=== PATIENT | female | born 1955 | race Hispanic/Latino ===

== ENCOUNTER 2024-09-27 14:19 | Emergency (ER) | payer OTHER ==
[2024-09-27 15:02] LABS: Absolute Eosinophils 0.1 K/uL (0-0.5); Absolute Lymphocytes (CBC) 0.5 K/uL (0.7-4.9); Absolute Monocytes 0.5 K/uL (0.1-1.3); Absolute Neutrophil 11.9 K/uL (1.8-8.0); Basophils % 0.3 % (0-1.3); Eosinophils % 0.8 % (0-4.4); Hematocrit 36.7 % (36.0-45.0); Lymphocytes % 3.7 % (15.3-44.8); MCH 26.4 pg (27.0-35.0); MCHC 32.7 g/dL (32.0-36.0); MPV 9.1 fL (7.6-11.3); Monocytes % 3.7 % (3.3-12.3); Neutrophils % 91.5 % (41.7-73.7); Platelets 236 thou/uL (152-406); RBC Red Blood Cell Count 4.53 M/uL (3.86-4.86); Red Cell Distribution Width 15.6 % (12.1-15.2)
[2024-09-27] MEDS ORDERED: METOCLOPRAMIDE 10 MG/2mL INJ ONE (15:12)
[2024-09-27] MEDS ORDERED: NA CHLORIDE 0.9% 500 ML ONE (15:12)
[2024-09-27] MEDS ORDERED: DIPHENHYDRAMINE 50 MG/ML VIAL ONE (15:12)
--- NOTE | 2024-09-27 15:20 | RAD REPORT ---
EXAMINATION: ONE VIEW CHEST XR CLINICAL INDICATION: Female, 68 years old.,CHEST PAIN TECHNIQUE: Frontal chest projection is submitted. Examination is limited by patient positioning and t echnique. COMPARISON: No prior exam. FINDINGS: The lungs are well inflated and clear. No pneumothorax or sizable effusion. The heart is normal in s ize. Mediastinal contours are unremarkable. IMPRESSION: No acute intrathoracic abnormalities.
[2024-09-27 15:28] LABS: ALT/SGPT 19 U/L (13-56); AST/SGOT 13 U/L (15-37); Albumin 3.6 g/dL (3.4-5.0); Albumin/Globulin Ratio 1.1 (1.1-1.8); Alkaline Phosphatase 83 U/L (45-117); Anion Gap 6.7 mEq/L (5.0-15.0); BUN Blood Urea Nitrogen 19 mg/dL (7-18); Bicarbonate 31 mEq/L (21-32); Bilirubin Direct < 0.2 mg/dL (0-0.2); Bilirubin Indirect, Calculated 0.1 mg/dL (0.2-0.8); Bilirubin Total 0.3 mg/dL (0.2-1.0); Globulin 3.3 g/dL (2.3-3.5); Glomerular Filtration Rate 68 ml/min (=/>90); Glucose Level 164 mg/dL (74-106); Lipase 133 U/L (13-75); Magnesium 1.3 mg/dL (1.6-2.4); Potassium 3.7 mEq/L (3.5-5.1); Protein, Total 6.9 g/dL (6.4-8.2); Sodium Level 138 mEq/L (136-145); Troponin High Sensitivity 5.3 pg/mL (<58.9)
[2024-09-27 16:18] LABS: Band Neutrophils 5 % (0-1); Blood Morphology Comment NOT SEEN (NOT SEEN); Differential Total Cells Count 100; Eosinophils 2 % (0-3); Lymphocytes 6 % (15-42); Monocytes 1 % (0-10); Platelet Estimate ADEQ; Segmented Neutrophils 86 % (40-80)
[2024-09-27] MEDS ORDERED: MAGNESIUM SULFATE 1 gm IVPB 1 GM/100 ML BAG IV ONE (16:32)
--- NOTE | 2024-09-27 16:41 | RAD REPORT ---
EXAMINATION: CT Abdomen Pelvis W Contrast CLINICAL INDICATION: Female, 68 years old. vomiting TECHNIQUE: CT abdomen and pelvis was performed, after the administration of IV contrast, as per [facility] protocol. Axial, sagittal and coronal reconstructions were obtained. One or more of the following dose reduction techniques were used: Automated exposure control, adjustment of the mA and k V according to patient size, and iterative reconstruction. Unless otherwise specified, incidental findings do not require dedicated imaging follow-up. COMPARISON: Benign-appearing central hepatic hypodensities, suggesting small cysts, largest measuring 1 cm FINDINGS: LOWER CHEST: The visualized lung bases are clear. LIVER: Normal in size and contour. No focal lesion. BILIARY SYSTEM: No suspicious abnormalities. SPLEEN: Normal size. No focal lesion. PANCREAS: No mass, ductal dilation, or william-pancreatic fluid. ADRENALS: Normal; no mass. KIDNEYS: Normal size and contour. No hydronephrosis. URINARY BLADDER: Unremarkable. GASTROINTESTINAL TRACT: No evidence of free air, significant intra-abdominal free fluid, bowel obstru ction or abscess. Distal colonic diverticulosis without evidence of acute diverticulitis. APPENDIX: Normal appendix. LYMPH NODES: No lymphadenopathy. MUSCULOSKELETAL: No acute or suspicious osseous abnormality. ADDITIONAL FINDINGS: None. IMPRESSION: No acute or concerning abnormalities seen in the abdomen or pelvis. Incidental findings as above.
--- NOTE | 2024-09-27 17:35 | EDPHYS ---
Physician Documentation [facility] Name: Suzanne Najera Age: 68 yrs Sex: Female : 1955 Arrival Date: 09/27/2024 Time: 14:19 Bed 7 Private MD: ED Physician Elver Dougherty HPI: 09/27 14:55 This 68 yrs old Female presents to ER via Ambulatory with complaints of cp Vomiting. 14:55 The patient presents to the emergency department with nausea, that is moderate, cp vomiting, that is intermittent, described as bilious. Onset: The symptoms/episode began/occurred yesterday. Possible causes: bad food exposure, beef and goat. Associated signs and symptoms: Pertinent negatives: constipation, diarrhea, fever, GI bleeding. Historical: - Allergies: 14:44 Tetanus Vaccines \T\ Toxoid; jl7 - PMHx: 14:44 Hypertensive disorder; Diabetes mellitus; Hypercholesterolemia; jl7 - Immunization history:: Adult Immunizations up to date. - Infectious Disease History:: Denies. - Social history:: Smoking status: Patient denies any tobacco usage or history of. ROS: 15:00 Constitutional: Negative for body aches, chills, fever, poor PO intake, cp 15:00 Eyes: Negative for injury, pain, redness, and discharge, cp 15:00 ENT: Negative for drainage from ear(s), ear pain, sore throat, difficulty swallowing, difficulty handling secretions, 15:00 Cardiovascular: Negative for chest pain, edema, palpitations, 15:00 Respiratory: Negative for cough, shortness of breath, wheezing, 15:00 Abdomen/GI: Positive for abdominal pain, nausea, vomiting, Negative for diarrhea, constipation, hematemesis, 15:00 Back: Negative for pain at rest, pain with movement, 15:00 Neuro: Negative for altered mental status, dizziness, headache, syncope, weakness, 15:00 All other systems are negative, Exam: 15:05 Constitutional: The patient appears in no acute distress, alert, awake, cp non-diaphoretic, non-toxic, well developed, well nourished, uncomfortable, 15:05 Head/Face: Normocephalic, atraumatic. cp 15:05 Eyes: Periorbital structures: appear normal, Conjunctiva: normal, no exudate, no injection, Sclera: no appreciated abnormality, Lids and lashes: appear normal, bilaterally, 15:05 ENT: External ear(s): are unremarkable, Nose: is normal, Mouth: Lips: moist, Oral mucosa: moist, Posterior pharynx: Airway: no evidence of obstruction, patent, erythema, is not appreciated, exudate, is not appreciated, 15:05 Neck: ROM/movement: is normal, is supple, without pain, no range of motions limitations, 15:05 Chest/axilla: Inspection: normal, 15:05 Cardiovascular: Rate: normal, Rhythm: regular, Edema: is not appreciated, JVD: is not appreciated, 15:05 Respiratory: the patient does not display signs of respiratory distress, Respirations: normal, no use of accessory muscles, no retractions, labored breathing, is not present, Breath sounds: are clear throughout, no decreased breath sounds, no stridor, no wheezing, 15:05 Abdomen/GI: Inspection: abdomen appears normal, Bowel sounds: active, all quadrants, Palpation: soft, in all quadrants, moderate abdominal tenderness, in the epigastric area, right upper quadrant and left upper quadrant, rebound tenderness, is not appreciated, involuntary guarding, is not appreciated, 15:05 Back: CVA tenderness, is absent, 15:05 Neuro: Orientation: to person, place \T\ time. Mentation: is normal, Motor: moves all fours, strength is normal, 15:12 ECG was reviewed by the Attending Physician. Vital Signs: 14:42 BP 125 / 93; Pulse 85; Resp 17; Pulse Ox 100% ; Weight 63.96 kg; Height 5 ft. 3 in. ; jl7 Pain 9/10; 15:22 BP 111 / 65; Pulse 83; Resp 16 S; Pulse Ox 98% on R/A; kc6 16:30 BP 154 / 62; Pulse 83; Resp 18 S; Pulse Ox 96% on R/A; kc6 17:17 BP 145 / 64; Pulse 77; Resp 17 S; Pulse Ox 99% on R/A; kc6 14:42 Body Mass Index 24.98 (63.96 kg, 160.02 cm) [facility] 14:42 Pain Scale: Adult [facility] MDM: 14:38 Medical Screening Exam initiated 17:33 Data reviewed: vital signs, nurses notes, EKG, radiologic studies, CT scan, plain cp films, and as a result, I will discharge patient. 17:33 I considered the following discharge prescriptions or medication management in the emergency department Medications were administered in the Emergency Department. See MAR. Independent interpretation of the following test(s) in the Emergency Department EKG: See my EKG interpretation above. Care significantly affected by the following chronic conditions: Diabetes, Hypertension. Counseling: I had a detailed discussion with the patient and/or guardian regarding the historical points, exam findings, and any diagnostic results supporting the discharge/admit diagnosis, lab results, radiology results, to return to the emergency department if symptoms worsen or persist or if there are any questions or concerns that arise at home. Response to treatment: the patient's symptoms have markedly improved after treatment, VSS. Pain and nausea improved, vomiting resolved. Lipase slightly elevated with normal CT abdomen. Will discharge to home for continued monitoring. 09/27 14:51 Order name: Basic Metabolic Panel; Complete Time: 16:11 cp 09/27 16:11 Interpretation: Normal except: GLUC 164; BUN 19; GFR 68. cp 09/27 14:51 Order name: CBC with Diff; Complete Time: 16:44 cp 09/27 16:11 Interpretation: Normal except: WBC 13.00; MCH 26.4; RDW 15.6; POPPY% 91.5; LYM% 3.7; NEUT cp A 11.9; LYMA 0.5. 09/27 14:51 Order name: LFT's; Complete Time: 16:11 cp 09/27 16:46 Interpretation: Normal except: AST 13; IBILI, CALC 0.1. cp 09/27 14:51 Order name: Magnesium; Complete Time: 16:11 cp 09/27 16:46 Interpretation: Abnormal: MG 1.3. cp 09/27 14:51 Order name: Troponin HS; Complete Time: 16:11 cp 09/27 14:51 Order name: Lipase; Complete Time: 16:11 cp 09/27 16:18 Order name: Manual Differential; Complete Time: 16:44 EDMS 09/27 16:45 Interpretation: Normal except: SEGS 86; BANDS [F] 5; LYM 6. cp 09/27 14:51 Order name: XRAY Chest (1 view); Complete Time: 16:11 cp 09/27 15:20 Order name: CT Abd/Pelvis - IV Contrast Only; Complete Time: 16:44 cp 09/27 16:45 Interpretation: Report reviewed. 09/27 14:51 Order name: Cardiac monitoring; Complete Time: 15:10 cp 09/27 14:51 Order name: EKG - Nurse/Tech; Complete Time: 15:10 cp 09/27 14:51 Order name: IV Saline Lock; Complete Time: 14:52 09/27 14:51 Order name: Labs collected and sent; Complete Time: 14:52 09/27 14:51 Order name: O2 Per Protocol; Complete Time: 14:52 09/27 14:51 Order name: O2 Sat Monitoring; Complete Time: 14:52 cp 09/27 16:46 Order name: PO challenge; Complete Time: 17:08 EC:12 Rate is 82 beats/min. Rhythm is regular. MD interval is normal. QRS interval is normal. cp QT interval is normal. T waves are Inverted in leads III, aVR. Interpreted by me. Reviewed by me. Administered Medications: 15:19 Drug: metoCLOPramide IVP 10 mg IVP once; over 1 to 2 minutes Route: IVP; Site: left [facility] antecubital; 17:16 Follow up: Response: No adverse reaction; Nausea is decreased; Vomiting decreased [facility] 15:19 Drug: diphenhydrAMINE IVP 12.5 mg IVP once Route: IVP; Site: left antecubital; [facility] 17:16 Follow up: Response: No adverse reaction [facility] 15:19 Drug: NS 0.9% IV 500 ml 500 ml IV at 1 bolus once; to be given as a bolus over 30 kc6 minutes Volume: 500 ml; Route: IV; Rate: 1 bolus; Site: left antecubital; 17:16 Follow up: Response: No adverse reaction; IV Status: Completed infusion; IV Intake: kc6 500ml 16:36 Drug: Magnesium Sulfate IVPB 1 grams IVPB once over 1 hrs Route: IVPB; Infused Over: 1 kc6 hrs; Site: left antecubital; 17:52 Follow up: IV Status: Completed infusion bp Disposition: 09/28 10:54 Co-signature as Attending Physician, Elver Dougherty MD I reviewed the patient's care rn provided by the Advanced Practice Provider and agree with the diagnosis and treatment plan. Disposition Summary: 09/27/24 17:34 Discharge Ordered Notes: Location: Home cp Problem: new cp Symptoms: have improved cp Condition: Stable cp Diagnosis - Nausea with vomiting, unspecified cp - Upper abdominal pain, unspecified cp Followup: cp - With: Private Physician - When: 2 - 3 days - Reason: Recheck today's complaints Discharge Instructions: - Discharge Summary Sheet cp - Abdominal Pain, Adult cp - Nausea and Vomiting, Adult cp Forms: - Medication Reconciliation Form cp - Antibiotic Education cp - Prescription Opioid Use cp - Patient Portal Instructions cp - Leadership Thank You Letter cp Prescriptions: - Pepcid 20 mg Oral Tablet - take 1 tablet ORAL route every 12 hours for 10 days; 20 tablet; Refills: 0, cp Product Selection Permitted - Zofran 4 mg Oral Tablet - take 1 tablet ORAL route every 12 hours As needed; 20 tablet; Refills: 0, cp Product Selection Permitted Signatures: Dispatcher [employer] EDMS Elver Dougherty MD MD rn Huber Belcher PA PA cp Leal, Jahala RN RN jl7 Martha Fajardo RN RN kc6 Adams Vides RN bp Corrections: (The following items were deleted from the chart) 09/27 14:52 14:52 BASIC METABOLIC PANEL+C.LAB.BRZ ordered. EDMS EDMS 14:52 14:52 CBC+H.LAB.BRZ ordered. EDMS EDMS 14:52 14:52 HEPATIC FUNCTION+C.LAB.BRZ ordered. EDMS EDMS 14:52 14:52 MAGNESIUM+C.LAB.BRZ ordered. EDMS EDMS 14:52 14:52 Troponin High Sensitivity+C.LAB.BRZ ordered. EDMS EDMS 14:52 14:52 LIPASE+C.LAB.BRZ ordered. EDMS EDMS 14:52 14:52 Chest Single View+RAD.RAD.BRZ ordered. EDMS EDMS
--- NOTE | 2024-09-27 17:35 | ER ---
Nurse's Notes [facility] Name: Suzanne Najera Age: 68 yrs Sex: Female : 1955 Arrival Date: 09/27/2024 Time: 14:19 Bed 7 Private MD: Diagnosis: Nausea with vomiting, unspecified;Upper abdominal pain, unspecified Presentation: 09/27 14:42 Chief complaint: Patient states: N/V x 1 day after eating meat at a [employer]. Coronavirus jl7 screen: At this time, the client does not indicate any symptoms associated with coronavirus-19. Ebola Screen: No symptoms or risks identified at this time. Initial Sepsis Screen: Does the patient meet any 2 criteria? No. Patient's initial sepsis screen is negative. Does the patient have a suspected source of infection? No. Patient's initial sepsis screen is negative. Risk Assessment: Do you want to hurt yourself or someone else? Patient reports no desire to harm self or others. Onset of symptoms was September 26, 2024. 14:42 Method Of Arrival: Ambulatory [facility] 14:42 Acuity: BRONSON 3 jl7 Triage Assessment: 14:44 General: Appears in no apparent distress. uncomfortable, Behavior is calm, cooperative, jl7 appropriate for age. Pain: Complains of pain in abdomen Pain currently is 9 out of 10 on a pain scale. GI: Reports nausea, vomiting. Historical: - Allergies: 14:44 Tetanus Vaccines \T\ Toxoid; jl7 - PMHx: 14:44 Hypertensive disorder; Diabetes mellitus; Hypercholesterolemia; jl7 - Immunization history:: Adult Immunizations up to date. - Infectious Disease History:: Denies. - Social history:: Smoking status: Patient denies any tobacco usage or history of. Screenin:53 [facility] ED Fall Risk Assessment (Adult) History of falling in the last 3 months, kc6 including since admission No falls in past 3 months (0 pts) Confusion or Disorientation No (0 pts) Intoxicated or Sedated No (0 pts) Impaired Gait No (0 pts) Mobility Assist Device Used No (0 pt) Altered Elimination No (0 pt) Score/Fall Risk Level 0 - 2 = Low Risk Oriented to surroundings, Maintained a safe environment, Educated pt \T\ family on fall prevention, incl call for assistance when getting out of bed. Abuse screen: Denies threats or abuse. Denies injuries from another. Nutritional screening: No deficits noted. Tuberculosis screening: No symptoms or risk factors identified. Assessment: 15:21 General: Appears in no apparent distress. uncomfortable, well groomed, well developed, kc6 Behavior is calm, cooperative, appropriate for age. Pain: Complains of pain in chest and abdomen. Neuro: Level of Consciousness is awake, alert, obeys commands, Oriented to person, place, time, situation, Appropriate for age. Cardiovascular: Reports chest pain, Denies palpitations, shortness of breath, Heart tones S1 S2 present Capillary refill < 3 seconds Rhythm is sinus rhythm. Respiratory: Airway is patent Trachea midline Respiratory effort is even, unlabored, Respiratory pattern is regular, symmetrical. GI: Abdomen is round non-distended, Pt is actively vomiting clear fluid, Bowel sounds present X 4 quads. Abd is soft X 4 quads Reports lower abdominal pain, upper abdominal pain, intolerance of fluids, intolerance of food, nausea, vomiting, Patient currently denies diarrhea. : No signs and/or symptoms were reported regarding the genitourinary system. EENT: No signs and/or symptoms were reported regarding the EENT system. Derm: No signs and/or symptoms reported regarding the dermatologic system. Skin is intact, is fragile, is thin, with poor turgor Skin is dry, Skin is pale, Skin temperature is warm. 16:30 Reassessment: Patient appears in no apparent distress at this time. No changes from kc6 previously documented assessment. Patient and/or family updated on plan of care and expected duration. Pain level reassessed. Patient is alert, oriented x 3, equal unlabored respirations, skin warm/dry/pink. 17:17 Reassessment: Patient appears in no apparent distress at this time. No changes from kc6 previously documented assessment. Patient and/or family updated on plan of care and expected duration. Pain level reassessed. Patient is alert, oriented x 3, equal unlabored respirations, skin warm/dry/pink. Patient states feeling better. Patient states symptoms have improved. Vital Signs: 14:42 BP 125 / 93; Pulse 85; Resp 17; Pulse Ox 100% ; Weight 63.96 kg; Height 5 ft. 3 in. ; jl7 Pain 9/10; 15:22 BP 111 / 65; Pulse 83; Resp 16 S; Pulse Ox 98% on R/A; kc6 16:30 BP 154 / 62; Pulse 83; Resp 18 S; Pulse Ox 96% on R/A; kc6 17:17 BP 145 / 64; Pulse 77; Resp 17 S; Pulse Ox 99% on R/A; kc6 14:42 Body Mass Index 24.98 (63.96 kg, 160.02 cm) jl7 14:42 Pain Scale: Adult [facility] ED Course: 14:21 Patient arrived in ED. im 14:24 Huber Beclher PA is PHCP. cp 14:24 Elver Dougherty MD is Attending Physician. cp 14:44 Triage completed. jl7 14:44 Arm band placed on right wrist. jl 14:52 Martha Fajardo, TWIN is Primary Nurse. kc6 14:52 Initial lab(s) drawn, by me, sent to lab. Missed attempt(s): 20 gauge in right wrist. kc6 Inserted saline lock: 20 gauge in left antecubital area, using aseptic technique. Blood collected. Flushed with 10 mL NS. Patient maintains SpO2 saturation greater than 95% on room air. 14:53 Patient has correct armband on for positive identification. Bed in low position. Call [facility] light in reach. Side rails up X 1. Adult w/ patient. nurse monitoring on. Pulse ox on. NIBP on. Door closed. Noise minimized. Lights dimmed. Warm blanket given. Pillow given. Verbal reassurance given. 15:03 XRAY Chest (1 view) In Process Unspecified. EDMS 15:10 EKG done, by ED staff, reviewed by Huber GALLARDO. kc 16:01 CT Abd/Pelvis - IV Contrast Only In Process Unspecified. EDMS 17:08 Diet: Patient given water. Tolerated well. kc6 17:51 Provided Education on: NA. bp 17:51 No provider procedures requiring assistance completed. IV discontinued, intact, bp bleeding controlled, No redness/swelling at site. Pressure dressing applied. Administered Medications: 15:19 Drug: metoCLOPramide IVP 10 mg IVP once; over 1 to 2 minutes Route: IVP; Site: left [facility] antecubital; 17:16 Follow up: Response: No adverse reaction; Nausea is decreased; Vomiting decreased [facility] 15:19 Drug: diphenhydrAMINE IVP 12.5 mg IVP once Route: IVP; Site: left antecubital; kc6 17:16 Follow up: Response: No adverse reaction kc6 15:19 Drug: NS 0.9% IV 500 ml 500 ml IV at 1 bolus once; to be given as a bolus over 30 kc6 minutes Volume: 500 ml; Route: IV; Rate: 1 bolus; Site: left antecubital; 17:16 Follow up: Response: No adverse reaction; IV Status: Completed infusion; IV Intake: kc6 500ml 16:36 Drug: Magnesium Sulfate IVPB 1 grams IVPB once over 1 hrs Route: IVPB; Infused Over: 1 kc6 hrs; Site: left antecubital; 17:52 Follow up: IV Status: Completed infusion bp Medication: 17:51 VIS not applicable for this client. bp Intake: 17:16 IV: 500ml; Total: 500ml. kc6 Outcome: 17:34 Discharge ordered by MD. cp 17:51 Discharged to home ambulatory, with family, bp 17:51 Condition: stable 17:51 Discharge instructions given to patient, family, Instructed on discharge instructions, follow up and referral plans. medication usage, Demonstrated understanding of instructions, follow-up care, medications, Prescriptions given X 2, 17:52 Patient left the ED. bp Signatures: Dispatcher [employer] EDMS Huber Belcher PA PA cp Leal, Jahala, RN RN jl7 Adams Vides RN RN bp Campbell, Kaitlyn, RN RN kc6 Varsha Alejo
[2024-09-27 18:17] VITALS: BP 145/64; O2SAT 99
--- NOTE | 2024-09-28 10:48 | EKG ---
Test Date: 2024-09-27 Test Time: 15:08:02 [employer]ized [employer] Unit Operator: LORRIE MEASUREMENT RESULTS: Intervals: Rate: 82 CO: 130 QRSD: 78 QT: 410 QTc: 479 [place]: P: 45 CO: 130 QRS: 46 T: 30 INTERPRETIVE STATEMENTS: Normal sinus rhythm Possible Inferior infarct, age undetermined Abnormal ECG No previous ECG available for comparison Electronically Signed On 09-28-24 10:47:21 CDT by Ted Nickerson
== END 2024-09-27 17:52 | disposition home or self-care (01) ==
LOC: ER 14:19
DX: R11.2 Nausea with vomiting, unspecified (principal); R10.13 Epigastric pain
CPT/HCPCS: 96365; 96361; 93005; 85025; 80048; 36415; 83735; 80076; 84484; 83690; 74177; 71045; 96375; 99285; Q9967; J3475; J2765; J1200; J7040

== ENCOUNTER 2024-11-10 16:25 | Observation (INO) | payer OTHER ==
[2024-11-10 16:54] LABS: Absolute Basophils 0.1 K/uL (0-0.5); Absolute Eosinophils 0.1 K/uL (0-0.5); Absolute Lymphocytes (CBC) 1.2 K/uL (0.7-4.9); Absolute Monocytes 0.3 K/uL (0.1-1.3); Absolute Neutrophil 4.4 K/uL (1.8-8.0); Basophils % 0.8 % (0-1.3); Hematocrit 31.8 % (36.0-45.0); Hemoglobin 10.6 g/dL (12.0-15.0); Lymphocytes % 20.1 % (15.3-44.8); MCH 27.1 pg (27.0-35.0); MCHC 33.5 g/dL (32.0-36.0); MCV 81.1 fL (80-100); Monocytes % 4.9 % (3.3-12.3); Neutrophils % 73.2 % (41.7-73.7); Platelets 168 thou/uL (152-406); RBC Red Blood Cell Count 3.92 M/uL (3.86-4.86); Red Cell Distribution Width 16.3 % (12.1-15.2)
[2024-11-10] MEDS ORDERED: MAGNES/ALUMIN/SIMET 30ML UCUP ONE (16:54)
[2024-11-10] MEDS ORDERED: LIDOCAINE VISCOUS 2% 10ML ORAL SOLN ONE (16:55)
--- NOTE | 2024-11-10 17:06 | RAD REPORT ---
EXAMINATION: ONE VIEW CHEST XR CLINICAL INDICATION: CHEST PAIN TECHNIQUE: Frontal chest projection is submitted. Examination is limited by patient positioning and t echnique. COMPARISON: 09/27/2024 FINDINGS: The lungs are well inflated and clear. The heart is upper limit of normal in size. No displaced fract ures identified. IMPRESSION: No acute intrathoracic abnormalities.
[2024-11-10 17:20] LABS: ALT/SGPT 19 U/L (13-56); AST/SGOT 16 U/L (15-37); Albumin 3.7 g/dL (3.4-5.0); Alkaline Phosphatase 71 U/L (45-117); Anion Gap 14.7 mEq/L (5.0-15.0); BUN Blood Urea Nitrogen 20 mg/dL (7-18); Bicarbonate 26 mEq/L (21-32); Bilirubin Total 0.4 mg/dL (0.2-1.0); Globulin 3.6 g/dL (2.3-3.5); Glomerular Filtration Rate 51 ml/min (=/>90); Glucose Level 138 mg/dL (74-106); Lipase 30 U/L (13-75); Magnesium 1.3 mg/dL (1.6-2.4); Potassium 3.7 mEq/L (3.5-5.1); Protein, Total 7.3 g/dL (6.4-8.2); Sodium Level 131 mEq/L (136-145)
[2024-11-10 17:23] LABS: Bilirubin Direct < 0.2 mg/dL (0-0.2); Bilirubin Indirect, Calculated 0.2 mg/dL (0.2-0.8)
--- NOTE | 2024-11-10 17:38 | ER ---
Nurse's Notes [facility] Name: Suzanne Najera Age: 68 yrs Sex: Female : 1955 Arrival Date: 11/10/2024 Time: 16:25 Bed 7 Private MD: Diagnosis: Chest pain, unspecified;Essential (primary) hypertension Presentation: 11/10 16:34 Chief complaint: Patient states: Epigastric pain, feels bad, weak, lightheaded. ss Coronavirus screen: Client denies travel out of the [place] in the last 14 days. At this time, the client does not indicate any symptoms associated with coronavirus-19. Ebola Screen: Patient denies travel to an Ebola-affected area in the 21 days before illness onset. Initial Sepsis Screen: Does the patient meet any 2 criteria? No. Patient's initial sepsis screen is negative. Does the patient have a suspected source of infection? No. Patient's initial sepsis screen is negative. Risk Assessment: Do you want to hurt yourself or someone else? Patient reports no desire to harm self or others. Onset of symptoms was November 10, 2024. 16:34 Method Of Arrival: Ambulatory ss 16:34 Acuity: BRONSON 3 ss Triage Assessment: 16:43 General: Appears in no apparent distress. Behavior is calm, cooperative, appropriate kn for age. Pain: Complains of pain in epigastric area. Neuro: No deficits noted. Elias Agitation-Sedation Scale (RASS): 0 - Alert and Calm. Cardiovascular: No deficits noted. Respiratory: No deficits noted. GI: Reports epigastric pain, Pain is 8 out of 10 on a pain scale. Historical: - Allergies: 16:34 Tetanus Vaccines \\T\\ Toxoid; ss - PMHx: 16:34 diabetes mellitus; Hypercholesterolemia; Hypertensive disorder; ss - Immunization history:: Adult Immunizations up to date. - Infectious Disease History:: Denies. - Social history:: Smoking status: Patient denies any tobacco usage or history of. Screenin:45 [facility] ED Fall Risk Assessment (Adult) History of falling in the last 3 months, kn including since admission No falls in past 3 months (0 pts) Confusion or Disorientation No (0 pts) Intoxicated or Sedated No (0 pts) Impaired Gait No (0 pts) Mobility Assist Device Used No (0 pt) Altered Elimination No (0 pt) Score/Fall Risk Level 0 - 2 = Low Risk Oriented to surroundings, Maintained a safe environment. Abuse screen: Denies threats or abuse. Denies injuries from another. Nutritional screening: No deficits noted. Tuberculosis screening: No symptoms or risk factors identified. Assessment: 16:45 Reassessment: pt wc to room, c/c: epigastric pain started this morning after drinking kn coffee. pt describes pain as "pressure, 8/10" pain scale. pt denies n/v/d, no sob. pt is AAOx4, in no acute distress, placed on pilot teacher, bp cuff, and pulse ox, MD thalia at bedside, new orders noted and implemented, will continue to monitor pt. EKG completed. Pain: Pain does not radiate. Pain began gradually. 19:06 Reassessment: pt care/report given to TWIN Alba. pt is AAOx4, in no acute distress. kn 19:24 General: Appears in no apparent distress. comfortable, Behavior is calm, cooperative. bl1 Neuro: No deficits noted. Level of Consciousness is awake, alert, Oriented to person, place, time, situation. Cardiovascular: No deficits noted. Reports epigastric pain. Respiratory: No deficits noted. Airway is patent. GI: No deficits noted. Abdomen is non-distended. : No deficits noted. EENT: No deficits noted. Derm: No deficits noted. Musculoskeletal: No deficits noted. 20:37 Reassessment: Patient appears in no apparent distress at this time. No changes from bl1 previously documented assessment. Patient and/or family updated on plan of care and expected duration. Pain level reassessed. Patient is alert, oriented x 3, equal unlabored respirations, skin warm/dry/pink. 21:34 Reassessment: Patient appears in no apparent distress at this time. No changes from bl1 previously documented assessment. Patient and/or family updated on plan of care and expected duration. Pain level reassessed. Patient is alert, oriented x 3, equal unlabored respirations, skin warm/dry/pink. yellow sheet, ekg and sbar sent to 4th floor through tube station; 4th floor notified of paperwork sent through tube and confirmed it was received. Vital Signs: 16:51 BP 143 / 70; Pulse 60; Resp 15; Pulse Ox 100% ; jl7 16:51 Temp 97.5; Weight 63.5 kg; Height 5 ft. 0 in. ; Pain 8/10; kn 19:04 Pulse 61; Resp 18; Pulse Ox 100% ; kn 20:00 BP 118 / 82; Pulse 77; Resp 18; Pulse Ox 99% ; bl1 20:21 BP 133 / 63; Pulse 58; Resp 17; Pulse Ox 99% ; bl1 21:35 BP 145 / 63; Pulse 53; Resp 18; Pulse Ox 99% on R/A; bl1 16:51 Body Mass Index 27.34 (63.50 kg, 152.4 cm) kn 16:51 Pain Scale: Adult kn ED Course: 16:33 Patient arrived in ED. cj3 16:34 Arm band placed on Patient placed in an exam room, on a stretcher. ss 16:35 Triage completed. ss 16:35 Viral Watkins DO is Attending Physician. ms3 16:39 ALE ALVES, RN is Primary Nurse. kn 16:45 Patient has correct armband on for positive identification. Bed in low position. Call kn light in reach. Side rails up X 1. Provided Education on: use of call light, plan of care, pt verbalizes understanding.. Client placed on continuous cardiac and pulse oximetry monitoring. NIBP monitoring applied. radar mechanic on. Pulse ox on. NIBP on. 16:45 No provider procedures requiring assistance completed. Inserted saline lock: 20 gauge kn in right antecubital area, using aseptic technique. Patient maintains SpO2 saturation greater than 95% on room air. 16:51 EKG done, by ED staff, reviewed by Viral Watkins DO. jl7 16:59 XRAY Chest (1 view) In Process Unspecified. EDMS 17:37 Prince Woods MD is Hospitalizing Provider. ms3 19:10 Patient has correct armband on for positive identification. Bed in low position. Call bl1 light in reach. Side rails up X 1. pt remains on continuous cardica monitoring and pulse oximetry monitoring. at bedside. 20:37 Patient has correct armband on for positive identification. Placed in gown. Bed in low bl1 position. Call light in reach. Side rails up X 1. 22:01 Patient admitted, IV remains in place. bl1 Administered Medications: 16:58 Drug: GI Cocktail without - (Maalox PO 30 ml, Lidocaine Mucous Membrane 2 % 15 kn ml) PO once Route: PO; 17:44 Follow up: Response: No adverse reaction kn Medication: 16:45 VIS not applicable for this client. kn Outcome: 17:37 Decision to Hospitalize by Provider. ms3 22:01 Admitted to Med/surg accompanied by tech, via stretcher, room 412, with chart, Report bl1 called to chart tubed to 4th floor 22:01 Condition: stable 22:01 Instructed on the need for admit, Demonstrated understanding of follow-up care, 22:03 Patient left the ED. bl1 Signatures: Dispatcher [employer] EDMS Christina Ramos, RN RN ss Ronit Leblanc RN RN jl7 Viral Watkins, DO ms3 ALE ALVES, RN RN Ashley Sanchez cj3 Jordyn Phan RN RN bl1
--- NOTE | 2024-11-10 17:38 | EDPHYS ---
Physician Documentation [facility] Name: Suzanne Najera Age: 68 yrs Sex: Female : 1955 Arrival Date: 11/10/2024 Time: 16:25 Bed 7 Private MD: ED Physician Viral Watkins HPI: 11/10 16:51 This 68 yrs old Female presents to ER via Ambulatory with complaints of Chest ms3 Pain, Lightheaded. 16:51 68-year-old female with past medical history of diabetes, hyperlipidemia, hypertension ms3 presents emergency department for chest pain that is described as tight/pressure and rated an 8/10. Patient states her symptoms began after drinking strong coffee earlier this morning. Patient then took 0.1 mg of clonidine at 9 AM. 30 minutes prior to arrival patient took 2 Tylenol secondary to epigastric pain. Patient notes her mouth being tight. Patient denies nausea, vomiting, shortness of breath. Historical: - Allergies: 16:34 Tetanus Vaccines \T\ Toxoid; ss - PMHx: 16:34 diabetes mellitus; Hypercholesterolemia; Hypertensive disorder; ss - Immunization history:: Adult Immunizations up to date. - Infectious Disease History:: Denies. - Social history:: Smoking status: Patient denies any tobacco usage or history of. ROS: 17:09 Constitutional: Negative for fever, and chills. ms3 17:09 MS/Extremity: Negative for injury and deformity, Skin: Negative for injury, rash, and discoloration, 17:09 Cardiovascular: Positive for chest pain, 17:09 Abdomen/GI: Positive for abdominal pain, Exam: 17:09 Constitutional: This is a well developed, well nourished patient who is awake, alert, ms3 and in no acute distress. Cardiovascular: Regular rate and rhythm with a normal S1 and S2. No gallops, murmurs, or rubs. Normal PMI, no JVD. No pulse deficits. Respiratory: Lungs have equal breath sounds bilaterally, clear to auscultation and percussion. No rales, rhonchi or wheezes noted. No increased work of breathing, no retractions or nasal flaring. Abdomen/GI: Soft, non-tender, with normal bowel sounds. No distension or tympany. No guarding or rebound. No evidence of tenderness throughout. Skin: Warm, dry with normal turgor. Normal color with no rashes, no lesions, and no evidence of cellulitis. MS/ Extremity: Pulses equal, no cyanosis. Neurovascular intact. Full, normal range of motion. 17:11 ECG was reviewed by the Attending Physician. ms3 Vital Signs: 16:51 BP 143 / 70; Pulse 60; Resp 15; Pulse Ox 100% ; jl7 16:51 Temp 97.5; Weight 63.5 kg; Height 5 ft. 0 in. ; Pain 8/10; kn 19:04 Pulse 61; Resp 18; Pulse Ox 100% ; kn 20:00 BP 118 / 82; Pulse 77; Resp 18; Pulse Ox 99% ; bl1 20:21 BP 133 / 63; Pulse 58; Resp 17; Pulse Ox 99% ; bl1 21:35 BP 145 / 63; Pulse 53; Resp 18; Pulse Ox 99% on R/A; bl1 16:51 Body Mass Index 27.34 (63.50 kg, 152.4 cm) kn 16:51 Pain Scale: Adult kn MDM: 16:35 Medical Screening Exam initiated ms3 17:09 Differential diagnosis: abnormal EKG, acute myocardial infarction, pancreatitis. ms3 17:35 HEART Score: History: Moderately Suspicious (1), ECG: Normal (0), Age: > or = 65 years ms3 (2), Risk Factors: > or = 3 Risk factors for atherosclerotic disease (2), [Hypercholesterolemia] [Hypertension] [DM] Troponin: < or = 1 x Normal Limit (0), Total Score = 5. The patient was given aspirin in the Emergency Department. Data reviewed: vital signs, nurses notes, lab test result(s), EKG, radiologic studies, and as a result, I will admit patient. Consideration of Admission/Observation Patient was admitted/placed on observation. Management of patient was discussed with the following: Hospitalist: . I considered the following discharge prescriptions or medication management in the emergency department Medications were administered in the Emergency Department. See MAR. Independent interpretation of the following test(s) in the Emergency Department EKG: See my EKG interpretation above. Counseling: I had a detailed discussion with the patient and/or guardian regarding the historical points, exam findings, and any diagnostic results supporting the discharge/admit diagnosis, lab results, radiology results, the need for further work-up and treatment in the hospital, to return to the emergency department if symptoms worsen or persist or if there are any questions or concerns that arise at home. Special discussion:. ED course: Discussed labs and imaging with patient and her son. Discussed observation with them and they understand and agree with plan. 11/10 16:36 Order name: Basic Metabolic Panel; Complete Time: 17:30 ms3 11/10 16:36 Order name: CBC with Diff; Complete Time: 17:30 ms3 11/10 16:36 Order name: LFT's; Complete Time: 17:30 ms3 11/10 16:36 Order name: Magnesium; Complete Time: 17:30 ms3 11/10 16:36 Order name: Troponin HS; Complete Time: 17:30 ms3 11/10 16:36 Order name: Lipase; Complete Time: 17:30 ms3 11/10 20:05 Order name: CBC with Automated Diff EDMS 11/10 20:05 Order name: CBC with Automated Diff EDMS 11/10 20:05 Order name: CBC with Automated Diff EDMS 11/10 20:05 Order name: Troponin High Sensitivity EDMS 11/10 20:05 Order name: Troponin High Sensitivity EDMS 11/10 20:05 Order name: Troponin High Sensitivity EDMS 11/10 20:05 Order name: Troponin High Sensitivity EDMS 11/10 20:05 Order name: Troponin High Sensitivity EDMS 11/10 21:34 Order name: Glucose, Ancillary Testing EDMS 11/10 16:36 Order name: XRAY Chest (1 view); Complete Time: 17:30 ms3 11/10 20:05 Order name: Echo with Doppler EDMS 11/10 20:05 Order name: Echo with Doppler EDMS 11/10 16:36 Order name: EKG; Complete Time: 16:36 ms3 11/10 20:05 Order name: EKG Electrocardiogram EDMS 11/10 20:05 Order name: EKG Electrocardiogram EDMS 11/10 20:05 Order name: EKG Electrocardiogram EDMS 11/10 20:05 Order name: EKG Electrocardiogram EDMS 11/10 16:36 Order name: Cardiac monitoring; Complete Time: 16:39 ms3 11/10 16:36 Order name: EKG - Nurse/Tech; Complete Time: 16:39 ms3 11/10 16:36 Order name: IV Saline Lock; Complete Time: 16:40 ms3 11/10 16:36 Order name: Labs collected and sent; Complete Time: 16:40 ms3 11/10 16:36 Order name: O2 Per Protocol; Complete Time: 16:40 ms3 11/10 16:36 Order name: O2 Sat Monitoring; Complete Time: 16:40 ms3 EC:11 Rate is 65 beats/min. Rhythm is regular. QRS [place] is Normal. MS interval is normal. QRS ms3 interval is normal. Clinical impression: NSR w/ Non-specific ST/T Changes. Interpreted by me. Reviewed by me. Administered Medications: 16:58 Drug: GI Cocktail without - (Maalox PO 30 ml, Lidocaine Mucous Membrane 2 % 15 kn ml) PO once Route: PO; 17:44 Follow up: Response: No adverse reaction kn Disposition Summary: 11/10/24 17:37 Hospitalization Ordered Notes: Hospitalization Status: Observation ms3 Provider: Prince Woods ms3 Location: Telemetry/MedSurg (observation) ms3 Condition: Stable ms3 Problem: new ms3 Symptoms: are unchanged ms3 Bed/Room Type: Standard ms3 Room Assignment: 412(11/10/24 21:22) rv1 Diagnosis - Chest pain, unspecified ms3 - Essential (primary) hypertension ms3 Forms: - Medication Reconciliation Form ms3 - SBAR form ms3 - Leadership Thank You Letter ms3 Signatures: Dispatcher [employer] EDChristina Woodall RN RN Viral Watkins DO DO ms3 Clarisse Ley rv1 ALE ALVES RN RN kn Corrections: (The following items were deleted from the chart) 16:36 16:36 BASIC METABOLIC PANEL+C.LAB.BRZ ordered. EDMS EDMS 16:36 16:36 CBC+H.LAB.BRZ ordered. EDMS EDMS 16:36 16:36 HEPATIC FUNCTION+C.LAB.BRZ ordered. EDMS EDMS 16:36 16:36 MAGNESIUM+C.LAB.BRZ ordered. EDMS EDMS 16:36 16:36 Troponin High Sensitivity+C.LAB.BRZ ordered. EDMS EDMS 16:36 16:36 LIPASE+C.LAB.BRZ ordered. EDMS EDMS 17:11 17:09 MS/Extremity: Negative for injury and deformity, Skin: Negative for injury, rash, ms3 and discoloration, ms3 21:22 17:37 ms3 rv1
[2024-11-10] MEDS ORDERED: MORPHINE 4 MG/ML SYR IV PRN (19:58)
[2024-11-10] MEDS ORDERED: NITROGLYCERIN 0.4 MG/TAB SL PRN (19:58)
[2024-11-10] MEDS ORDERED: SODIUM CHLORIDE 0.9% 10ML INJ IV PRN (20:04)
[2024-11-10 20:48] VITALS: BMI 27.3
[2024-11-10] MEDS: INSULIN REGULAR (HUMAN) 100 UNIT/ML SQ SCH (21:00)
[2024-11-10] MEDS ORDERED: PANTOPRAZOLE 40 MG INJ ONE (21:38)
[2024-11-10] MEDS ORDERED: NACHLORIDE 0.45% 1,000 ML IV ONE (21:39)
[2024-11-10] MEDS: PANTOPRAZOLE 40 MG INJ IVP ONE (21:48)
[2024-11-10] MEDS: NACHLORIDE 0.45% 1,000 ML IV SCH (21:49)
[2024-11-10] MEDS: FLECAINIDE 100 MG TAB PO SCH (22:23)
[2024-11-10] MEDS: ACETAMINOPHEN 500 MG TAB PO PRN (22:24)
--- NOTE | 2024-11-10 23:39 | P.HP ---
Certification for Inpatient Patient admitted to: Observation With expected LOS: >2 Midnights Patient will require the following post-hospital care: None Practitioner: I am a practitioner with admitting privileges, knowledge of patient current condition, hospital course, and medical plan of care. Services: Services provided to patient in accordance with Admission requirements found in Title 42 Section 412.3 of the Code of Federal Regulations Patient History Date of Service: 11/11/24 Reason for admission: Chest pain, BENOIT. History of Present Illness: Patient is a 68-year-old female who is a predominantly Cameroonian-speaking, with past medical history of essential hypertension, type 2 diabetes mellitus, GERD, hypercholesterolemia, brought to the ER today complaining of chest pain versus epigastric pain due to GERD. Patient states in the morning she drank some coffee that was real strong around 8 30 am-9 a.m. She states around 3 PM she started having mid chest pain, patient states the chest wall pain will not go away which then prompted her to be brought to the ER. Patient denies having associated shortness of breath. Patient also had a BUN of 20, and creatinine of 1.17 patient initial troponin x 2 negative. Patient received cocktail in ER, states the pain did not go away. During admission assessment, patient was fully awake, alert and oriented, responding appropriately to all questions asked, when I asked the patient to locate where the pain is, she pointed more around the epigastric region. Patient EKG negative for ST abnormalities. Since is difficult to ascertain if patient pain is more GERD related or cardiac related, patient will be admitted for observation and will have cardiac workup including cardiology consultation, and Echo. Allergies Tetanus Vaccines and Toxoid Allergy (Verified 11/10/24 20:46) Hives/Rash Home medications list reviewed: No Home Medications: Amlodipine [Norvasc*] 10 mg PO BEDTIME 11/10/24 Apixaban [Eliquis] 5 mg PO DAILY 11/10/24 Cyanocobalamin (Vitamin B-12) [Vitamin B-12] 1,000 mcg PO DAILY 11/10/24 Flecainide Acetate 50 mg PO BID 11/10/24 Furosemide [Lasix] 40 mg PO DAILY 11/10/24 Gabapentin 100 mg PO BEDTIME 11/10/24 Hydralazine HCl [Apresoline] 50 mg PO BID 11/10/24 Metformin HCl 1,000 mg PO BID 11/10/24 Olmesartan Medoxomil [Benicar] 40 mg PO DAILY 11/10/24 Omeprazole [Prilosec] 40 mg PO DAILY 11/10/24 Potassium Chloride 10 meq PO DAILY 11/10/24 Rosuvastatin Calcium [Crestor] 40 mg PO DAILY 11/10/24 cloNIDine HCL [Clonidine HCl] 0.05 mg PO BID 11/10/24 - Past Medical/Surgical History Has patient received pneumonia vaccine in the past: Yes Diabetic: Yes -: hypertension -: diabetes mellitus -: atrial fibrillation -: hypercholesteremia -: Total hysterectomy - Family History Father -: Heart disease, Hypertension, Diabetes Mother -: Diabetes - Social History Smoking Status: Never smoker Alcohol use: No CD- Drugs: No Caffeine use: No Place of Residence: Home Review of Systems Cardiovascular: Chest Pain Gastrointestinal: Other (Possible epigastric pain) Physical Examination - Vital Signs Temperature: 97.5 F Blood Pressure: 145/63 Pulse: 53 Respirations: 18 Pulse Ox (%): 97 - Physical Exam General: Alert, In no apparent distress, Oriented x3, Cooperative HEENT: Atraumatic, Normocephalic, PERRLA, Mucous membr. moist/pink, Sclerae nonicteric Neck: Supple, 2+ carotid pulse no bruit, No Thyromegaly, No LAD, Without JVD or thyroid abnormality Respiratory: Clear to auscultation bilaterally, Normal air movement Cardiovascular: No edema, Normal pulses, No gallops, No rubs, No murmurs, Irregular heart rate/rhythm Capillary refill: <2 Seconds Gastrointestinal: Normal bowel sounds, Soft and benign, Non-distended, W/out hepatomegaly, No ascites, No tenderness, No masses, No rebound, No guarding Musculoskeletal: No clubbing, No swelling, No contractures, No erythema, No tenderness, No warmth Integumentary: No rashes, No breakdown, No significant lesion, No tenderness/swelling, No erythema, No warmth, No cyanosis Neurological: Normal speech, Normal tone, Sensation intact, Cranial nerves 3-12 intact, Normal reflexes 2+, Normal affect, Other (Mostly Cameroonian-speaking) Lymphatics: No axilla or inguinal lymphadenopathy - Studies Laboratory Data (last 24 hrs) 11/10/24 11/10/24 16:35 16:35 WBC 6.00 Hgb 10.6 L Hct 31.8 L Plt Count 168 Sodium 131 L Potassium 3.7 BUN 20 H Creatinine 1.17 H Glucose 138 H Magnesium 1.3 L Total Bilirubin 0.4 AST 16 ALT 19 Alkaline Phosphatase 71 Lipase 30 Female Exam - Breasts Breasts: Normal configuration Assessment and Plan - Plan Patient is a 60-year-old female who is predominantly Cameroonian-speaking, brought to the ER today complaining of chest pain with no associated shortness of breath. Patient has history of GERD, and based on the location where patient is pointing of her pain mostly epigastric region, it is very difficult to determine if her pain is cardiac related or GERD. Patient troponin x 2 negative, EKG with no ST abnormalities. The patient has history of cardiac related disease including hypertension, hypercholesteremia, and family history of coronary disea se. (1)Chest Pain vs GERD. Patient received a dose of cocktail in ER, but states the pain did not go away. - Order stat dose of Protonix 40 mg IV. -Resume patient home medication of omeprazole 40 mg p.o. daily -Initiated chest pain protocol including morphine 4 mg IV as needed every 4 hours, nitro 0.4 mg sublingual every 5 minutes x 3. - Order serial troponin. - Order EKG every 8 hours x 3. -Admit to telemetry observation. 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 -Order moderate sliding scale coverage. - Resume home medication metformin 1000 mg p.o. daily sustained-release. (3)Chronic atrial fibrillation. -Continue home medication Eliquis 5 mg p.o. daily. (4)Chronic hypertension. -Continue home medication amlodipine 10 mg p.o. daily. (5)Explained the entire treatment plan to the patient, son, and [id number] present at the bedside, solicit questions answered and voiced understanding. Discharge Plan: Home - Advance Directives Does patient have a Living Will: No Does patient have a Durable POA for Healthcare: No - Code Status/Comfort Care Code Status Assessed: Yes Code Status: Full Code Critical Care: No Time Spent Managing Pts Care (In Minutes): 55
[2024-11-11] MEDS: PANTOPRAZOLE 40MG TABLET PO SCH (06:50)
[2024-11-11 07:28] LABS: Absolute Eosinophils 0.1 K/uL (0-0.5); Absolute Lymphocytes (CBC) 0.8 K/uL (0.7-4.9); Absolute Monocytes 0.2 K/uL (0.1-1.3); Absolute Neutrophil 2.2 K/uL (1.8-8.0); Basophils % 1.1 % (0-1.3); Eosinophils % 2.3 % (0-4.4); Hematocrit 30.8 % (36.0-45.0); Hemoglobin 10.3 g/dL (12.0-15.0); Lymphocytes % 25.1 % (15.3-44.8); MCH 26.8 pg (27.0-35.0); MCHC 33.4 g/dL (32.0-36.0); MCV 80.3 fL (80-100); MPV 9.2 fL (7.6-11.3); Monocytes % 6.8 % (3.3-12.3); Neutrophils % 64.7 % (41.7-73.7); Nucleated Red Blood Cells % 0.2 % (0-0); Platelets 163 thou/uL (152-406); RBC Red Blood Cell Count 3.84 M/uL (3.86-4.86); Red Cell Distribution Width 15.8 % (12.1-15.2)
[2024-11-11] MEDS: METFORMIN ER 500 MG TAB PO SCH (08:24)
[2024-11-11] MEDS: APIXABAN 5 MG TABLET PO SCH (08:24)
[2024-11-11] MEDS: FLECAINIDE 100 MG TAB PO SCH (08:25)
[2024-11-11] MEDS: AMLODIPINE 10 MG TAB PO SCH (08:27)
[2024-11-11] MEDS: ASPIRIN EC 81 MG TAB PO SCH (08:27)
[2024-11-11] MEDS ORDERED: ENOXAPARIN 40 MG/0.4 ML SQ SCH (09:00)
[2024-11-11] MEDS ORDERED: APIXABAN 5 MG TABLET PO ONE (09:00)
--- NOTE | 2024-11-11 10:10 | P.CNS ---
Date of Consult: 11/11/24 Chief Complaint: Chest pain, BENOIT. History of Present Illness: Patient with PMH of HTN, AF, presented with epigastric discomfort, denies left side chest pain, no palpitations, no syncope, no TRUJILLO. Allergies Tetanus Vaccines and Toxoid Allergy (Verified 11/10/24 20:46) Hives/Rash Home medications list reviewed: Yes Home Medications: Amlodipine [Norvasc*] 10 mg PO BEDTIME 11/10/24 Apixaban [Eliquis] 5 mg PO DAILY 11/10/24 Cyanocobalamin (Vitamin B-12) [Vitamin B-12] 1,000 mcg PO DAILY 11/10/24 Flecainide Acetate 50 mg PO BID 11/10/24 Furosemide [Lasix] 40 mg PO DAILY 11/10/24 Gabapentin 100 mg PO BEDTIME 11/10/24 Hydralazine HCl [Apresoline] 50 mg PO BID 11/10/24 Metformin HCl 1,000 mg PO BID 11/10/24 Olmesartan Medoxomil [Benicar] 40 mg PO DAILY 11/10/24 Omeprazole [Prilosec] 40 mg PO DAILY 11/10/24 Potassium Chloride 10 meq PO DAILY 11/10/24 Rosuvastatin Calcium [Crestor] 40 mg PO DAILY 11/10/24 cloNIDine HCL [Clonidine HCl] 0.05 mg PO BID 11/10/24 - Past Medical/Surgical History Diabetic: Yes -: hypertension -: diabetes mellitus -: atrial fibrillation -: hypercholesteremia -: Total hysterectomy - Family History Father Medical History: Heart disease, Hypertension, Diabetes Mother Medical History: Diabetes - Social History Alcohol use: No CD- Drugs: No Caffeine use: No Place of Residence: Home Review of Systems 10-point ROS is otherwise unremarkable Physical Examination Temp Pulse Resp BP Pulse Ox 98.1 F 51 14 118/55 L 97 11/11/24 08:00 11/11/24 08:27 11/11/24 08:00 11/11/24 08:11/11/24 08:00 General: Alert, In no apparent distress HEENT: Atraumatic, PERRLA, Mucous membr. moist/pink, EOMI, Sclerae nonicteric Neck: Supple, 2+ carotid pulse no bruit, No LAD, Without JVD or thyroid abnormality Respiratory: Clear to auscultation bilaterally, Normal air movement Cardiovascular: Regular rate/rhythm, Normal S1 S2 Gastrointestinal: Normal bowel sounds, No tenderness Musculoskeletal: No tenderness Integumentary: No rashes Neurological: Normal gait, Normal speech, Normal tone, Normal affect Lymphatics: No axilla or inguinal lymphadenopathy Laboratory Data (last 24 hrs) 11/10/24 11/10/24 16:35 16:35 WBC 6.00 Hgb 10.6 L Hct 31.8 L Plt Count 168 Sodium 131 L Potassium 3.7 BUN 20 H Creatinine 1.17 H Glucose 138 H Magnesium 1.3 L Total Bilirubin 0.4 AST 16 ALT 19 Alkaline Phosphatase 71 Lipase 30 - Problems (1) Chest pain Current Visit: Yes Status: Acute Plan: Non cardiac, EKG is normal, troponin negative x3 Echo shows normal LV systolic function and normal castaneda motion no further inpatient cardiac work up needed. Outpatient follow up with cardiology. (2) Atrial fibrillation Current Visit: Yes Status: Acute Plan: continue Flecanide and Eliquis. (3) HTN (hypertension) Current Visit: Yes Status: Acute Plan: continue home medications Cardiology will sign off, please call with any questions.
--- NOTE | 2024-11-11 10:19 | ECHO ---
HEIGHT: 5 ft 0 in WEIGHT: 140 lb 0 oz DATE OF STUDY: 11/11/[address]: Michael Griffith NP 2-DIMENSIONAL: YES M.MODE: YES DOPPLER: YES COLOR FLOW: YES TDS: NO PORTABLE: YES DEFINITY: NO BUBBLE STUDY: NO DIAGNOSIS: CHEST PAIN CARDIAC HISTORY: CATHERIZATION:YES SURGERY: NO PROSTHETIC VALVE: NO PACEMAKER: NO MEASUREMENTS (cm) DIASTOLIC (NORMALS) SYSTOLIC (NORMALS) IVSd 0.9 (0.6-1.2) LA Diam 3.3 (1.9-4.0) LVEF 60-65% LVIDd 4.0 (3.5-5.7) LVIDs 2.5 (2.0-3.5) %FS 38% LVPWd 1.0 (0.6-1.2) Ao Diam 2.5 (2.0-3.7) 2 DIMENSIONAL ASSESSMENT: RIGHT ATRIUM: NORMAL LEFT ATRIUM: MILDLY DILATED RIGHT VENTRICLE: NORMAL LEFT VENTRICLE: NORMAL TRICUSPID VALVE: MILD TRICUSPID REGURGITATION MITRAL VALVE: NORMAL PULMONIC VALVE: NORMAL AORTIC VALVE: NORMAL PERICARDIAL EFFUSION: NONE AORTIC ROOT: NORMAL LEFT VENTRICULAR WALL MOTION: NORMAL. DOPPLER/COLOR FLOW: GRADE I DIASTOLIC DYSFUNCTION. COMMENTS: 1. NORMAL LEFT VENTRICULAR SYSTOLIC FUNCTION. LEFT VENTRICULAR EJECTION FRACTION 60-65%. NORMAL WALL MOTION. 2. GRADE I DIASTOLIC DYSFUNCTION. 3. MILD PULMONARY HYPERTENSION. RIGHT VENTRICULAR SYSTOLIC PRESSURE 35-40 mmHg. 4. MILD TRICUSPID REGURGITATION. TECHNOLOGIST: BURAK WONG
[2024-11-11 10:28] VITALS: O2SAT 97
--- NOTE | 2024-11-11 11:14 | EKG ---
Test Date: 2024-11-10 Test Time: 16:46:15 Control Inspector: MARCO MEASUREMENT RESULTS: Intervals: Rate: 65 OH: 140 QRSD: 78 QT: 436 QTc: 453 [place]: P: 41 [place]: 140 QRS: 9 T: 51 INTERPRETIVE STATEMENTS: Normal sinus rhythm Inferior infarct, age undetermined Abnormal ECG Compared to ECG 09/27/2024 15:08:02 No significant changes Electronically Signed On 11-11-24 11:12:47 CDT by Ted Nickerson
[2024-11-11 12:03] VITALS: BP 138/70; TEMP 98.2
== END 2024-11-11 12:48 | disposition home or self-care (01) ==
LOC: ER 16:25 → ERHOLD 19:56 → 4TH 21:30
PROVIDERS: ADMIT Hospitalist; ATTEND Hospitalist
DX: R07.9 Chest pain, unspecified (principal); E11.9 Type 2 diabetes mellitus without complications; I48.11 Longstanding persistent atrial fibrillation; E78.00 Pure hypercholesterolemia, unspecified; I10 Essential (primary) hypertension; Z79.01 Long term (current) use of anticoagulants
CPT/HCPCS: 93005 ×2; 93306; 85025 ×2; 80048; 36415; 83735; 82947 ×3; 80076; 84484 ×4; 83690; 71045; 99285; J2470; G0378 ×4